=== PATIENT | female | born 1950 | race Caucasian/White ===

== ENCOUNTER 2016-10-05 09:21 | Emergency (ER) | payer MEDICARE, BC ==
--- NOTE | 2016-10-05 09:24 | EDM.PDOC ---
ED HPI GENERAL MEDICAL PROBLEM - General Chief Complaint: Chest Pain Stated Complaint: FROM CLINIC WITH CHEST PAIN Time Seen by Provider: 10/05/16 09:22 Source of Information: Reports: Patient, Old Records, RN, RN Notes Reviewed History Limitations: Reports: No Limitations - History of Present Illness INITIAL COMMENTS - FREE TEXT/NARRATIVE: Sent by Asya RECIO from clinic with c/o onset of lower to mid-chest pain last evening. Pt thought it was just heartburn from her GERD, but this morning the pain began to radiate to the neck and left shoulder, so she went to the clinic to have it checked out. Pt denies SOB, rapid HR, irregular HR, edema , fever, or chills. Admits to very slight nausea. 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) Left Chest Pain Score (Numeric/FACES): 1 - Related Data Allergies Allergy/AdvReac Type Severity Reaction Status Date / Time amoxicillin [From Augmentin] Allergy Rash Verified 10/05/16 10:05 carrot Allergy Rash Verified 10/05/16 10:05 clavulanic acid Allergy Rash Verified 10/05/16 10:05 [From Augmentin] nut - unspecified Allergy Swelling Verified 10/05/16 10:05 peanut Allergy Swelling Verified 10/05/16 10:05 shellfish derived Allergy Swelling Verified 10/05/16 10:05 Sulfa (Sulfonamide Allergy Rash Verified 10/05/16 10:05 Antibiotics) Home Meds: Home Meds Albuterol [Ventolin HFA] 2 puff INH Q4H PRN 10/05/16 [History] EPINEPHrine [Epipen] 0.3 mg IM ONETIME 10/05/16 [History] Furosemide [Lasix] 20 mg PO DAILY 10/05/16 [History] Ipratropium/Albuterol Sulfate [Combivent Respimat Inhal [place]] 2 puff INH DAILY 10/05/16 [History] Levothyroxine 75 mcg PO ACBREAKFAST 10/05/16 [History] Loratadine [Claritin] 10 mg PO DAILY 10/05/16 [History] Melatonin 5 mg PO BEDTIME 10/05/16 [History] Montelukast [Singulair] 10 mg PO BEDTIME 10/05/16 [History] Pantoprazole Sodium [Protonix] 40 mg PO DAILY 10/05/16 [History] Past Medical History Cardiovascular History: Reports: High Cholesterol, Other (See Below) ( peripheral edema) Respiratory History: Reports: Asthma Gastrointestinal History: Reports: GERD Endocrine/Metabolic History: Reports: Hypothyroidism, Obesity/BMI 30+ Social & Family History - Family History Family Medical History: Noncontributory - Tobacco Use Smoking Status *Q: Never Smoker - Caffeine Use Caffeine Use: Reports: None - Alcohol Use Alcohol Use History: No - Living Situation & Occupation Living situation: Reports: , with Spouse ED ROS GENERAL - Review of Systems Review Of Systems: ROS reveals no pertinent complaints other than HPI. ED EXAM, GENERAL - Physical Exam Exam: See Below Exam Limited By: No Limitations General Appearance: Alert, WD/WN, No Apparent Distress, Obese Eye Exam: Bilateral Eye: Normal Inspection Ears: Normal External Exam, Hearing Grossly Normal Nose: Normal Inspection Throat/Mouth: Normal Inspection Head: Atraumatic, Normocephalic Neck: Normal Inspection, Supple, Non-Tender, Full Range of Motion Respiratory/Chest: No Respiratory Distress, Lungs Clear, Normal Breath Sounds, No Accessory Muscle Use, Chest Non-Tender Cardiovascular: Normal Peripheral Pulses, Regular Rate, Rhythm, No Edema, No Gallop, No JVD, No Murmur, No Rub GI/Abdominal: Normal Bowel Sounds, Soft, Non-Tender, No Organomegaly, No Distention, No Abnormal Bruit (Female) Exam: Deferred Rectal (Female) Exam: Deferred Back Exam: Normal Inspection Extremities: Normal Inspection, Normal Range of Motion, Non-Tender, Normal Capillary Refill, No Pedal Edema Neurological: Alert, Oriented, CN II-XII Intact, Normal Cognition, Normal Gait, No Motor/Sensory Deficits Psychiatric: Normal Affect, Normal Mood Skin Exam: Warm, Dry, Intact, Normal Color, No Rash EKG INTERPRETATION EKG Date: 10/05/16 Time: 09:28 Rhythm: Other (SR) Rate (Beats/Min): 63 [place]: Normal P-Wave: Present QRS: Normal (low voltage in precordial leads) ST-T: Normal QT: Normal Comparison: NA - No Prior EKG EKG Interpretation Comments: Repeat EKG at 1404HRS: NSR, rate 73, unchanged from prior. Course - Vital Signs Last Recorded V/S: Last Vital Signs Temp 36.6 C 10/05/16 13:25 Pulse 82 10/05/16 13:25 Resp 20 10/05/16 13:25 BP 124/61 10/05/16 13:25 Pulse Ox 96 10/05/16 13:25 - Orders/Labs/Meds Orders: Active Orders 24 hr Category Date Time Status EKG 12 Lead [EKG Documentation Completion] [RC] STAT Care 10/05/16 09:27 Active EKG Documentation Completion [RC] ONETIME Care 10/05/16 13:30 Active Peripheral IV Care [RC] . DIRECTED Care 10/05/16 09:28 Active Heart Healthy Diet [DIET] Diet 10/05/16 Lunch Active Nitroglycerin [Nitrostat] Med 10/05/16 09:27 Active 0.4 mg SL Q5M PRN Sodium Chloride 0.9% [Saline Flush] Med 10/05/16 09:27 Active 10 ml FLUSH ASDIRECTED PRN Peripheral IV Insertion Adult [OM.PC] Stat Oth 10/05/16 09:27 Ordered Medication Orders Nitroglycerin (Nitrostat) 0.4 mg SL Q5M PRN PRN Reason: Chest Pain Sodium Chloride (Saline Flush) 10 ml FLUSH ASDIRECTED PRN PRN Reason: Keep Vein Open Last Admin: 10/05/16 09:53 Dose: 10 ml Labs: Laboratory Tests 10/05/16 10/05/16 10/05/16 Range/Units 09:36 09:36 09:36 WBC 4.7 L (5.0-10.0) 10^3/uL RBC 4.71 (4.2-5.4) 10^6/uL Hgb 14.2 (12.0-16.0) g/dL Hct 42.1 (37.0-47.0) % MCV 89.4 (80-100) fL MCH 30.1 (27.0-34.0) pg MCHC 33.7 (33.0-35.0) g/dL Plt Count 199 (150-450) 10^3/uL Neut % (Auto) 52.8 (42.2-75.2) % Lymph % (Auto) 30.0 (20.5-50.1) % [place] % (Auto) 13.1 H (2-8) % Eos % (Auto) 3.9 H (1.0-3.0) % Baso % (Auto) 0.2 (0.0-1.0) % D-Dimer, Quantitative 584 H (0-400) ng/mL Sodium 142 (135-145) mmol/L Potassium 4.2 (3.6-5.0) mmol/L Chloride 103 (101-111) mmol/L Carbon Dioxide 29.0 (21.0-31.0) mmol/L Anion Gap 14.2 BUN 21 H (7-18) mg/dL Creatinine 0.8 (0.6-1.3) mg/dL Est Cr Clr Drug Dosing 68.18 mL/min Estimated GFR (MDRD) > 60 BUN/Creatinine Ratio 26.25 Glucose 114 H (74-105) mg/dL Calcium 9.3 (8.4-10.2) mg/dl Total Bilirubin 0.9 (0.2-1.0) mg/dL AST 27 (10-42) IU/L ALT 33 (10-60) IU/L Alkaline Phosphatase 58 (42-121) IU/L Troponin I < 0.02 (0.00-0.02) ng/ml Total Protein 6.9 (6.7-8.2) g/dl Albumin 4.1 (3.2-5.5) g/dl Globulin 2.8 Albumin/Globulin Ratio 1.46 Amylase 31 (28-100) U/L Lipase 21 L (22-51) U/L TSH, Ultra Sensitive (0.35-7.0) uIu/mL 10/05/16 10/05/16 Range/Units 09:36 13:33 WBC (5.0-10.0) 10^3/uL RBC (4.2-5.4) 10^6/uL Hgb (12.0-16.0) g/dL Hct (37.0-47.0) % MCV (80-100) fL MCH (27.0-34.0) pg MCHC (33.0-35.0) g/dL Plt Count (150-450) 10^3/uL Neut % (Auto) (42.2-75.2) % Lymph % (Auto) (20.5-50.1) % [place] % (Auto) (2-8) % Eos % (Auto) (1.0-3.0) % Baso % (Auto) (0.0-1.0) % D-Dimer, Quantitative (0-400) ng/mL Sodium (135-145) mmol/L Potassium (3.6-5.0) mmol/L Chloride (101-111) mmol/L Carbon Dioxide (21.0-31.0) mmol/L Anion Gap BUN (7-18) mg/dL Creatinine (0.6-1.3) mg/dL Est Cr Clr Drug Dosing mL/min Estimated GFR (MDRD) BUN/Creatinine Ratio Glucose (74-105) mg/dL Calcium (8.4-10.2) mg/dl Total Bilirubin (0.2-1.0) mg/dL AST (10-42) IU/L ALT (10-60) IU/L Alkaline Phosphatase (42-121) IU/L Troponin I < 0.02 (0.00-0.02) ng/ml Total Protein (6.7-8.2) g/dl Albumin (3.2-5.5) g/dl Globulin Albumin/Globulin Ratio Amylase (28-100) U/L Lipase (22-51) U/L TSH, Ultra Sensitive 1.30 (0.35-7.0) uIu/mL Meds: Medications Generic Name Dose Route Start Last Admin Trade Name Freq PRN Reason Stop Dose Admin Nitroglycerin 0.4 mg 10/05/16 09:27 Nitrostat SL Q5M PRN Chest Pain Sodium Chloride 10 ml 10/05/16 09:27 10/05/16 09:53 Saline Flush FLUSH 10 ml ASDIRECTED PRN Administration Keep Vein Open Discontinued Medications Generic Name Dose Route Start Last Admin Trade Name Freq PRN Reason Stop Dose Admin Aspirin 324 mg 10/05/16 09:26 10/05/16 09:52 Aspirin PO 10/05/16 09:27 324 mg ONETIME ONE Administration - Radiology Interpretation Free Text/Narrative:: CXR: no acute process per Rad. report. - Re-Assessments/Exams Free Text/Narrative Re-Assessment/Exam: 10/05/16 10:43 Pt held as extended stay ER for chest pain rule out with repeat EKG and Troponin at 4hrs from initial draw. Departure - Departure Time of Disposition: 14:15 Disposition: Home, Self-Care 01 Condition: Good Clinical Impression: Non-cardiac chest pain Instructions: Nonspecific Chest Pain, [id number], Esophageal Spasm Forms: ED Department Discharge Additional Instructions: Follow up in clinic with your primary doctor this week for recheck and discuss your symptoms today. Your pain may be related to GERD and/or esophageal spasms. - My Orders Last 24 Hours: My Active Orders 10/05/16 09:27 EKG 12 Lead [EKG Documentation Completion] [RC] STAT Nitroglycerin [Nitrostat] 0.4 mg SL Q5M PRN Sodium Chloride 0.9% [Saline Flush] 10 ml FLUSH ASDIRECTED PRN Peripheral IV Insertion Adult [OM.PC] Stat 10/05/16 09:28 Peripheral IV Care [RC] . DIRECTED 10/05/16 13:30 EKG Documentation Completion [RC] ONETIME 10/05/16 Lunch Heart Healthy Diet [DIET] - Assessment/Plan Last 24 Hours: My Active Orders 10/05/16 09:27 EKG 12 Lead [EKG Documentation Completion] [RC] STAT Nitroglycerin [Nitrostat] 0.4 mg SL Q5M PRN Sodium Chloride 0.9% [Saline Flush] 10 ml FLUSH ASDIRECTED PRN Peripheral IV Insertion Adult [OM.PC] Stat 10/05/16 09:28 Peripheral IV Care [RC] . DIRECTED 10/05/16 13:30 EKG Documentation Completion [RC] ONETIME 10/05/16 Lunch Heart Healthy Diet [DIET]
[2016-10-05] MEDS ORDERED: Aspirin 81 MG Tab.Chew PO ONE (09:26)
[2016-10-05] MEDS ORDERED: Sodium Chloride 0.9% 10 ML Syringe FLUSH PRN (09:27)
[2016-10-05] MEDS ORDERED: Nitroglycerin 0.4 MG Tab.SL SL PRN (09:27)
--- NOTE | 2016-10-05 09:55 | CR ---
Clinical history: 66-year-old female emergency department with chest pain. Upright AP portable chest film confirms mild scoliosis and chronic arthritic changes of spine. 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 Reasonable inspiratory effort and normal cardiac silhouette without alveolar edema or dependent effu magnus. No lung mass, hilar lymphadenopathy or focal lobar pneumonia. No atelectasis/collapse. No pneumothor ax. CONCLUSION: No acute cardiopulmonary abnormality.
[2016-10-05 10:05] LABS: CHLORIDE,CL 103 mmol/L (101-111); SODIUM,NA 142 mmol/L (135-145)
[2016-10-05 13:26] VITALS: BP 124/61
--- NOTE | 2016-10-06 16:21 | EKG ---
10/05/2016 - JAY PEREZ 12-lead EKG shows normal sinus rhythm with no significant ST elevation or ST depression noted on this 12-lead EKG. Not much change from her previous EKG. [facility] /[id number]
--- NOTE | 2016-10-07 09:41 | EKG ---
10/05/2016- JAY PEREZ 12-lead EKG shows normal sinus rhythm with heart rate of 63. No significant ST elevation or ST depression noted on this 12-lead EKG. Nonspecific ST-T wave changes noted on lead 2 and also lead V1. [facility] /[id number]
== END 2016-10-05 14:27 | disposition home or self-care (01) ==
LOC: DL.ED 09:21
DX: R07.89 Other chest pain (principal); K21.9 Gastro-esophageal reflux disease without esophagitis; E78.00 Pure hypercholesterolemia, unspecified; E03.9 Hypothyroidism, unspecified; Z79.899 Other long term (current) drug therapy; Z88.8 Allergy status to other drugs, medicaments and biological substances
CPT/HCPCS: 36415; 71010; 80053; 82150; 83690; 84443; 84484; 85025; 85379; 93005; 93010; 99285; A9270; J7050

== ENCOUNTER 2018-09-15 16:07 | Emergency (ER) | payer MEDICARE, BC ==
[2018-09-15] MEDS ORDERED: Sodium Chloride 0.9% 10 ML Syringe FLUSH PRN (16:10)
[2018-09-15 16:14] VITALS: BP 128/74; PULSE 69
--- NOTE | 2018-09-15 16:33 | EDM.PDOC ---
ED HPI GENERAL MEDICAL PROBLEM - General Chief Complaint: Chest Pain Stated Complaint: POSSIBLE HEART ATTACK [id number] Time Seen by Provider: 09/15/18 16:20 Source of Information: Reports: Patient, RN, RN Notes Reviewed History Limitations: Reports: No Limitations - History of Present Illness INITIAL COMMENTS - FREE TEXT/NARRATIVE: Pt to ER with c/o left sided chest pain that radiates into the left arm, left neck and jaw, and into the back. Patient states the pain began about 1330 after eating lunch. Patient rates the pain 10/10 when pain was present. She states the pain has mostly subsided at this time. Pt admits to some nausea. Denies vomiting, diarrhea, fever or chills, SOB. Admits to having "the sweats" today during the episode. Patient denies health problems. States she has had chest pain like this in the past. Denies hx of [place], stents, CAD. States hx of GERD. Onset: Today, Sudden Left Chest Pain Score (Numeric/FACES): 4 - Related Data Allergies Allergy/AdvReac Type Severity Reaction Status Date / Time amoxicillin [From Augmentin] Allergy Rash Verified 09/15/18 16:17 carrot Allergy Rash Verified 09/15/18 16:17 clavulanic acid Allergy Rash Verified 09/15/18 16:17 [From Augmentin] nut - unspecified Allergy Swelling Verified 09/15/18 16:17 peanut Allergy Swelling Verified 09/15/18 16:17 shellfish derived Allergy Swelling Verified 09/15/18 16:17 Sulfa (Sulfonamide Allergy Rash Verified 09/15/18 16:17 Antibiotics) Home Meds: Home Meds Albuterol [Ventolin HFA] 2 puff INH Q4H PRN 10/05/16 [History] EPINEPHrine [Epipen] 0.3 mg IM ONETIME 10/05/16 [History] Ipratropium/Albuterol Sulfate [Combivent Respimat Inhal [place]] 2 puff INH DAILY 10/05/16 [History] Levothyroxine 75 mcg PO ACBREAKFAST 10/05/16 [History] Loratadine [Claritin] 10 mg PO DAILY 10/05/16 [History] Melatonin 5 mg PO BEDTIME 10/05/16 [History] Montelukast [Singulair] 10 mg PO BEDTIME 10/05/16 [History] Pantoprazole Sodium [Protonix] 40 mg PO DAILY 10/05/16 [History] Past Medical History Cardiovascular History: Reports: High Cholesterol, Other (See Below) ( peripheral edema) Respiratory History: Reports: Asthma Gastrointestinal History: Reports: GERD Musculoskeletal History: Reports: Fibromyalgia, Osteoarthritis Other Musculoskeletal History: osteopenia Other Neuro History: meningioma Endocrine/Metabolic History: Reports: Hypothyroidism, Obesity/BMI 30+ - Infectious Disease History Infectious Disease History: Reports: Chicken Pox, Mumps - Past Surgical History GI Surgical History: Reports: EGD Neurological Surgical History: Reports: Other (See Below) Other Neurological Surgeries/Procedures: meningioma Social & Family History - Family History Family Medical History: Noncontributory - Caffeine Use Caffeine Use: Reports: None - Living Situation & Occupation Living situation: Reports: , with Spouse ED ROS GENERAL - Review of Systems Review Of Systems: ROS reveals no pertinent complaints other than HPI. ED EXAM, GENERAL - Physical Exam Exam: See Below Exam Limited By: No Limitations General Appearance: Alert, WD/WN, No Apparent Distress Eye Exam: Bilateral Eye: EOMI, Normal Inspection Ears: Normal External Exam, Hearing Grossly Normal Nose: Normal Inspection Throat/Mouth: Normal Inspection, Normal Voice, No Airway Compromise Head: Atraumatic, Normocephalic Neck: Normal Inspection, Supple, Non-Tender, Full Range of Motion Respiratory/Chest: No Respiratory Distress, Lungs Clear, Normal Breath Sounds, No Accessory Muscle Use, Chest Non-Tender Cardiovascular: Normal Peripheral Pulses, Regular Rate, Rhythm, No Edema, No Gallop, No JVD, No Murmur, No Rub Peripheral Pulses: 2+: Radial (L), Radial (R) GI/Abdominal: Normal Bowel Sounds, Soft, Non-Tender (Female) Exam: Deferred Rectal (Female) Exam: Deferred Back Exam: Normal Inspection, Full Range of Motion, NT Extremities: Normal Inspection, Normal Range of Motion, Non-Tender, Normal Capillary Refill, No Pedal Edema Neurological: Alert, Oriented, CN II-XII Intact, Normal Cognition, Normal Gait, Normal Reflexes, No Motor/Sensory Deficits Psychiatric: Normal Affect, Normal Mood Skin Exam: Warm, Dry, Intact, Normal Color, No Rash Lymphatic: No Adenopathy EKG INTERPRETATION EKG Date: 09/15/18 Time: 16:15 Rhythm: NSR Rate (Beats/Min): 66 [place]: Normal P-Wave: Present QRS: Normal ST-T: Normal QT: Normal Comparison: No Change Course - Vital Signs Last Recorded V/S: Last Vital Signs Temp 97.3 F 09/15/18 16:13 Pulse 69 09/15/18 16:13 Resp 14 09/15/18 16:13 BP 128/74 09/15/18 16:13 Pulse Ox 97 09/15/18 16:13 - Orders/Labs/Meds Orders: Active Orders 24 hr Category Date Time Status EKG Documentation Completion [RC] STAT Care 09/15/18 16:10 Active Peripheral IV Care [RC] . DIRECTED Care 09/15/18 16:11 Active Sodium Chloride 0.9% [Saline Flush] Med 09/15/18 16:10 Active 10 ml FLUSH ASDIRECTED PRN Peripheral IV Insertion Adult [OM.PC] Stat Oth 09/15/18 16:10 Ordered Medication Orders Sodium Chloride (Saline Flush) 10 ml FLUSH ASDIRECTED PRN PRN Reason: Keep Vein Open Last Admin: 09/15/18 16:15 Dose: 10 ml Labs: Laboratory Tests 09/15/18 09/15/18 09/15/18 Range/Units 16:14 16:14 16:14 WBC 6.2 (5.0-10.0) 10^3/uL RBC 4.94 (4.2-5.4) 10^6/uL Hgb 14.9 (12.0-16.0) g/dL Hct 44.5 (37.0-47.0) % MCV 90.1 (80-100) fL MCH 30.2 (27.0-34.0) pg MCHC 33.5 (33.0-35.0) g/dL Plt Count 211 (150-450) 10^3/uL Neut % (Auto) 52.3 (42.2-75.2) % Lymph % (Auto) 35.0 (20.5-50.1) % [place] % (Auto) 10.0 H (2-8) % Eos % (Auto) 2.4 (1.0-3.0) % Baso % (Auto) 0.3 (0.0-1.0) % PT 9.6 (9.0-12.0) SEC INR 0.9 (0.9-1.2) Sodium 140 (135-145) mmol/L Potassium 3.7 (3.6-5.0) mmol/L Chloride 101 (101-111) mmol/L Carbon Dioxide 28.0 (21.0-31.0) mmol/L Anion Gap 14.7 BUN 12 (7-18) mg/dL Creatinine 0.9 (0.6-1.3) mg/dL Est Cr Clr Drug Dosing 58.99 mL/min Estimated GFR (MDRD) > 60 BUN/Creatinine Ratio 13.33 Glucose 123 H (74-105) mg/dL Calcium 9.0 (8.4-10.2) mg/dl Total Bilirubin 0.8 (0.2-1.0) mg/dL AST 23 (10-42) IU/L ALT 27 (10-60) IU/L Alkaline Phosphatase 61 (42-121) IU/L Troponin I < 0.02 (0.00-0.02) ng/ml Total Protein 7.0 (6.7-8.2) g/dl Albumin 4.2 (3.2-5.5) g/dl Globulin 2.8 Albumin/Globulin Ratio 1.50 Meds: Medications Generic Name Dose Route Start Last Admin Trade Name Freq PRN Reason Stop Dose Admin Sodium Chloride 10 ml 09/15/18 16:10 09/15/18 16:15 Saline Flush FLUSH 10 ml ASDIRECTED PRN Administration Keep Vein Open Discontinued Medications Generic Name Dose Route Start Last Admin Trade Name Freq PRN Reason Stop Dose Admin Al Hydroxide/Mg Hydroxide 30 ml 09/15/18 16:58 09/15/18 17:02 Gi Cocktail PO 09/15/18 16:59 30 ml ONETIME ONE Administration - Radiology Interpretation Free Text/Narrative:: Chest xray: No acute findings See rad report - Re-Assessments/Exams Free Text/Narrative Re-Assessment/Exam: 09/15/18 17:23 Patient reports improvement of pain with GI Cocktail. Departure - Departure Time of Disposition: 17:23 Disposition: Home, Self-Care 01 Reason for Transfer *Q: Other Condition: Fair Clinical Impression: Non-cardiac chest pain Gastroesophageal reflux disease Qualifiers: Esophagitis presence: esophagitis presence not specified Qualified Code(s): K21.9 - Gastro-esophageal reflux disease without esophagitis Instructions: Indigestion, [id number], Food Choices for Gastroesophageal Reflux Disease, Adult, [id number], Heartburn, [id number], Chest Wall Pain, [id number], Nonspecific Chest Pain, [id number], Gastroesophageal Reflux Disease, Adult, [id number] Forms: ED Department Discharge Additional Instructions: Follow up with your primary care facility for possible stress test Return to the ER with any further problems Avoid greasy, fatty foods, spicy foods, caffeine, mint, chocolate, alcohol. Drink plenty of water Sit upright for 30-60 minutes after eating - My Orders Last 24 Hours: My Active Orders 09/15/18 16:10 EKG Documentation Completion [RC] STAT Sodium Chloride 0.9% [Saline Flush] 10 ml FLUSH ASDIRECTED PRN Peripheral IV Insertion Adult [OM.PC] Stat 09/15/18 16:11 Peripheral IV Care [RC] . DIRECTED - Assessment/Plan Last 24 Hours: My Active Orders 09/15/18 16:10 EKG Documentation Completion [RC] STAT Sodium Chloride 0.9% [Saline Flush] 10 ml FLUSH ASDIRECTED PRN Peripheral IV Insertion Adult [OM.PC] Stat 09/15/18 16:11 Peripheral IV Care [RC] . DIRECTED
--- NOTE | 2018-09-15 16:34 | CR ---
Clinical history: 68-year-old female chest pain Interpretation: No acute new cardiopulmonary abnormality since 05 October 2016 comparable film. Dorsolumbar scoliosis spine. External wrapper opener leads and down snaps. Normal cardiac silhouette without cephalization of vascular flow, alveolar edema or dependent pleural fluid accumulation. No new lung mass, hilar lymphadenopathy or focal lobar pneumonia. No atelectasis/collapse. No pneumothorax.
[2018-09-15 16:41] LABS: ANION GAP 14.7; CHLORIDE,CL 101 mmol/L (101-111); SODIUM,NA 140 mmol/L (135-145)
[2018-09-15] MEDS ORDERED: GI Cocktail Oral Solution 30 ML PO ONE (16:58)
== END 2018-09-15 17:31 | disposition home or self-care (01) ==
LOC: DL.ED 16:07
DX: K21.9 Gastro-esophageal reflux disease without esophagitis (principal); E03.9 Hypothyroidism, unspecified; Z79.899 Other long term (current) drug therapy; Z88.2 Allergy status to sulfonamides; Z88.1 Allergy status to other antibiotic agents; Z91.010 Allergy to peanuts; Z91.013 Allergy to seafood; Z91.018 Allergy to other foods; Z88.8 Allergy status to other drugs, medicaments and biological substances
CPT/HCPCS: 36415; 71045; 80053; 84484; 85025; 85610; 93005; 99285; A9270; 93010; 99283

== ENCOUNTER 2019-03-11 16:28 | Emergency (ER) | payer OTHER, MEDICARE, BC ==
[2019-03-11] MEDS ORDERED: Codeine/guaiFENesin 100-10 MG/5 ML Syrup 5 ML Cup PO ONE (16:29)
[2019-03-11 16:34] VITALS: BP 139/75; PULSE 115
[2019-03-11] MEDS ORDERED: Albuterol/Ipratropium 3.0-0.5 MG/3 ML Neb Soln NEB ONE (17:03)
[2019-03-11] MEDS ORDERED: Codeine/guaiFENesin 100-10 MG/5 ML Syrup 5 ML Cup ONE (17:27)
--- NOTE | 2019-03-11 17:36 | EDM.PDOC ---
Scribed by Maria Dolores Leblanc 03/11/19 1702 for Pat Lomeli NP ED HPI GENERAL MEDICAL PROBLEM - General Chief Complaint: ENT Problem Stated Complaint: SORE THROAT, EARACHE Time Seen by Provider: 03/11/19 16:48 Source of Information: Reports: Patient, RN, RN Notes Reviewed History Limitations: Reports: No Limitations - History of Present Illness INITIAL COMMENTS - FREE TEXT/NARRATIVE: Patient presents to ER with bilateral ear pain left greater than right, cough, headache and sore throat with fevers off and on for 1 week. She also has fatigue. She has been taking Tylenol and Nyquil. She has a cough and still not sleeping. Patient did have her flu shot this year in Dec.. Onset Date: 03/05/19 Duration: Getting Worse Location: Reports: Generalized Quality: Reports: Ache Severity: Moderate Improves with: Reports: None Worsens with: Reports: None Associated Symptoms: Reports: Other (dry cough) Throat Pain Score (Numeric/FACES): 4 - Related Data Allergies Allergy/AdvReac Type Severity Reaction Status Date / Time amoxicillin [From Augmentin] Allergy Rash Verified 03/11/19 16:34 carrot Allergy Rash Verified 03/11/19 16:34 clavulanic acid Allergy Rash Verified 03/11/19 16:34 [From Augmentin] nut - unspecified Allergy Swelling Verified 03/11/19 16:34 peanut Allergy Swelling Verified 03/11/19 16:34 shellfish derived Allergy Swelling Verified 03/11/19 16:34 Sulfa (Sulfonamide Allergy Rash Verified 03/11/19 16:34 Antibiotics) Home Meds: Home Meds Albuterol [Ventolin HFA] 2 puff INH Q4H PRN 10/05/16 [History] EPINEPHrine [Epipen] 0.3 mg IM ONETIME 10/05/16 [History] Ipratropium/Albuterol Sulfate [Combivent Respimat Inhal [place]] 2 puff INH DAILY 10/05/16 [History] Levothyroxine 75 mcg PO ACBREAKFAST 10/05/16 [History] Loratadine [Claritin] 10 mg PO DAILY 10/05/16 [History] Montelukast [Singulair] 10 mg PO BEDTIME 10/05/16 [History] Pantoprazole Sodium [Protonix] 40 mg PO DAILY 10/05/16 [History] Desipramine 20 mg PO DAILY 03/11/19 [History] Past Medical History HEENT History: Reports: Impaired Vision Cardiovascular History: Reports: High Cholesterol Respiratory History: Reports: Asthma Gastrointestinal History: Reports: GERD Musculoskeletal History: Reports: Fibromyalgia, Osteoarthritis Other Musculoskeletal History: osteopenia Other Neuro History: meningioma Endocrine/Metabolic History: Reports: Hypothyroidism, Obesity/BMI 30+ - Infectious Disease History Infectious Disease History: Reports: Chicken Pox, Measles, Mumps - Past Surgical History GI Surgical History: Reports: EGD Female Surgical History: Reports: Hysterectomy Neurological Surgical History: Reports: Other (See Below) Other Neurological Surgeries/Procedures: meningioma Social & Family History - Family History Family Medical History: Noncontributory - Tobacco Use Smoking Status *Q: Never Smoker Second Hand Smoke Exposure: No - Caffeine Use Caffeine Use: Reports: None - Recreational Drug Use Recreational Drug Use: No - Living Situation & Occupation Living situation: Reports: , with Spouse ED ROS ENT - Review of Systems Review Of Systems: Comprehensive ROS is negative, except as noted in HPI. ED EXAM, ENT - Physical Exam Exam: See Below Exam Limited By: No Limitations General Appearance: Alert, WD/WN, No Apparent Distress Eye Exam: Bilateral Eye: EOMI, Normal Inspection, PERRL Ears: Normal External Exam, Normal Canal, Hearing Grossly Normal, Normal TMs Nose: Normal Inspection, Normal Mucousa, No Blood Mouth/Throat: Normal Inspection, Normal Lips, Other (mild red atrophy tonsils) Head: Atraumatic, Normocephalic Neck: Normal Inspection, Supple, Non-Tender, Full Range of Motion Respiratory/Chest: No Respiratory Distress, Lungs Clear, Normal Breath Sounds, No Accessory Muscle Use, Chest Non-Tender Cardiovascular: Normal Peripheral Pulses, Regular Rate, Rhythm, No Edema, No Gallop, No JVD, No Murmur, No Rub GI/Abdominal: Normal Bowel Sounds, Soft, Non-Tender, No Organomegaly, No Distention, No Abnormal Bruit, No Mass (Female) Exam: Deferred Rectal (Female) Exam: Deferred Back: Normal Inspection, Full Range of Motion Extremities: Normal Inspection, Normal Range of Motion, Non-Tender, No Pedal Edema, Normal Capillary Refill Neurological: Alert, Oriented, CN II-XII Intact, Normal Cognition, Normal Gait, Normal Reflexes, No Motor/Sensory Deficits Psychiatric: Normal Affect, Normal Mood Skin: Warm, Dry, Intact, Normal Color, No Rash Course - Vital Signs Last Recorded V/S: Last Vital Signs Temp 36.6 C 03/11/19 16:30 Pulse 115 H 03/11/19 17:11 Resp 18 03/11/19 16:30 BP 139/75 03/11/19 16:30 Pulse Ox 96 03/11/19 16:30 - Orders/Labs/Meds Orders: Active Orders 24 hr Category Date Time Status RT Aerosol Therapy [RC] ASDIRECTED Care 03/11/19 17:03 Active CULTURE STREP A CONFIRMATION [] Stat Lab 03/11/19 16:39 Results STREP SCRN A RAPID W CULT CONF [] Stat Lab 03/11/19 16:39 Results Labs: Rapid strep: Negative. Influenza A: Positive. Influenza B: Negative. Meds: Medications Discontinued Medications Generic Name Dose Route Start Last Admin Trade Name Freq PRN Reason Stop Dose Admin Albuterol/Ipratropium 3 ml 03/11/19 17:03 03/11/19 17:11 Duoneb 3.0-0.5 Mg/3 Ml NEB 03/11/19 17:04 3 ml ONETIME ONE Administration Codeine/guaifenesin 5 ml q 4-6 hours. 4 doses sent home with patinet; and a Rx. - Re-Assessments/Exams Free Text/Narrative Re-Assessment/Exam: 03/11/19 17:30 Influenza A positive. Frequent cough. Duo neb given; Lungs clear, cough decreased after duoneb. She was informed to use her inhaler 3-4 x per day to help settle cough down. Not sleeping due to cough. Given some codeine guaifenesin cough syrup to go. Handout on influenza given. She is return to her PCP if develops an SOB worsening fevers or concerns. Departure - Departure Time of Disposition: 17:36 Disposition: Home, Self-Care 01 Condition: Good Clinical Impression: Influenza A - Discharge Information Instructions: Influenza, Adult, [id number] Forms: ED Department Discharge Additional Instructions: cough syrup q 4-6 hours only to use if sleeping as it will make you sleep. Do not take any other cough med with it such as nyquil as it is also sedative. Not to be around others for 48 hr after your temp is gone. rest and see you PCP in 1 week if still not resolved or if SOB or concerns. Drink plenty of fluids. Stay away from women or children. Sepsis Event Note - Evaluation Sepsis Screening Result: No Definite Risk - Focused Exam Vital Signs: Vital Signs Temp Pulse Resp BP Pulse Ox 03/11/19 17:11 115 H 03/11/19 16:30 36.6 C 115 H 18 139/75 96 Date Exam was Performed: 03/11/19 Time Exam was Performed: 17:26 - My Orders Last 24 Hours: My Active Orders 03/11/19 16:39 CULTURE STREP A CONFIRMATION [RM] Stat STREP SCRN A RAPID W CULT CONF [RM] Stat 03/11/19 17:03 RT Aerosol Therapy [RC] ASDIRECTED - Assessment/Plan Last 24 Hours: My Active Orders 03/11/19 16:39 CULTURE STREP A CONFIRMATION [RM] Stat STREP SCRN A RAPID W CULT CONF [RM] Stat 03/11/19 17:03 RT Aerosol Therapy [RC] ASDIRECTED I have read and agree with the documentation that has been completed regarding this visit. By signing this record, I attest that the documentation was completed in my physical presence and is an accurate record of the encounter.
== END 2019-03-11 17:42 | disposition home or self-care (01) ==
LOC: DL.ED 16:28
DX: J10.1 Influenza due to other identified influenza virus with other respiratory manifestations (principal); E03.9 Hypothyroidism, unspecified; E66.9 Obesity, unspecified; J45.909 Unspecified asthma, uncomplicated; Z91.018 Allergy to other foods; Z88.0 Allergy status to penicillin; Z91.013 Allergy to seafood; Z88.2 Allergy status to sulfonamides; Z88.8 Allergy status to other drugs, medicaments and biological substances; Z79.899 Other long term (current) drug therapy; Z68.35 Body mass index [BMI] 35.0-35.9, adult
CPT/HCPCS: 87081; 87430; 87804; 94640; 99284-25; A9270-GY; J7620-GY

== ENCOUNTER 2020-12-08 14:20 | Emergency (ER) | payer MEDICARE, BC ==
--- NOTE | 2020-12-08 17:16 | EDM.PDOC ---
ED HPI GENERAL MEDICAL PROBLEM - General Chief Complaint: Eye Problems Stated Complaint: [id number] [facility] Time Seen by Provider: 12/08/20 17:00 Source of Information: Reports: Patient History Limitations: Reports: No Limitations - History of Present Illness INITIAL COMMENTS - FREE TEXT/NARRATIVE: This 70 yo female patient reports to the ED due to floaters in her right eye and light flashes in her right eye. The patient reports she did have a fall about 1 1/2 weeks ago hitting the right side of her face, but was not seen after the fall. The patient also reports a history of brain tumors that were mostly removed through [facility]. The patient reports she was told that they could not remove a small tumor from under the right optic nerve. The patient reports [facility] and was [facility] to come to [facility]. Duration: Week(s):, Constant Location: Reports: Head, Face Quality: Reports: Other Severity: Moderate Improves with: Reports: None Worsens with: Reports: None Context: Reports: Other Associated Symptoms: Reports: No Other Symptoms - Related Data Allergies Allergy/AdvReac Type Severity Reaction Status Date / Time amoxicillin [From Augmentin] Allergy Rash Verified 12/08/20 15:07 carrot Allergy Rash Verified 12/08/20 15:07 clavulanic acid Allergy Rash Verified 12/08/20 15:07 [From Augmentin] nut - unspecified Allergy Swelling Verified 12/08/20 15:07 peanut Allergy Swelling Verified 12/08/20 15:07 shellfish derived Allergy Swelling Verified 12/08/20 15:07 Sulfa (Sulfonamide Allergy Rash Verified 12/08/20 15:07 Antibiotics) Home Meds: Home Meds Albuterol [Ventolin HFA] 2 puff INH Q4H PRN 10/05/16 [History] EPINEPHrine [Epipen] 0.3 mg IM ONETIME 10/05/16 [History] Ipratropium/Albuterol Sulfate [Combivent Respimat Inhal [place]] 2 puff INH DAILY 10/05/16 [History] Levothyroxine 75 mcg PO ACBREAKFAST 10/05/16 [History] Loratadine [Claritin] 10 mg PO DAILY 10/05/16 [History] Montelukast [Singulair] 10 mg PO BEDTIME 10/05/16 [History] Pantoprazole Sodium [Protonix] 40 mg PO DAILY 10/05/16 [History] Desipramine 20 mg PO DAILY 03/11/19 [History] Past Medical History HEENT History: Reports: Impaired Vision Cardiovascular History: Reports: High Cholesterol Respiratory History: Reports: Asthma Gastrointestinal History: Reports: GERD Genitourinary History: Reports: None RACK WORKER History: Reports: None Musculoskeletal History: Reports: Fibromyalgia, Osteoarthritis Other Musculoskeletal History: osteopenia Other Neuro History: meningioma Psychiatric History: Reports: None Endocrine/Metabolic History: Reports: Hypothyroidism, Obesity/BMI 30+ Hematologic History: Reports: None Immunologic History: Reports: None Oncologic (Cancer) History: Reports: Brain Dermatologic History: Reports: None - Infectious Disease History Infectious Disease History: Reports: Chicken Pox, Measles, Mumps - Past Surgical History Head Surgeries/Procedures: Reports: None GI Surgical History: Reports: EGD Female Surgical History: Reports: Hysterectomy Neurological Surgical History: Reports: Other (See Below) Other Neurological Surgeries/Procedures: meningioma Social & Family History - Family History Family Medical History: No Pertinent Family History - Tobacco Use Tobacco Use Status *Q: Never Tobacco User Second Hand Smoke Exposure: No - Caffeine Use Caffeine Use: Reports: Coffee - Recreational Drug Use Recreational Drug Use: No - Living Situation & Occupation Living situation: Reports: , with Spouse ED ROS GENERAL - Review of Systems Review Of Systems: Comprehensive ROS is negative, except as noted in HPI. ED EXAM GENERAL W FULL EYE - Physical Exam Exam: See Below Exam Limited By: No Limitations General Appearance: Alert, WD/WN, Mild Distress Eye Exam: Bilateral Eye: EOMI, Normal Inspection, PERRL Eyelids: Bilateral: Normal Appearance Conjunctiva & Sclera: Bilateral: Normal Appearance Cornea Exam: Bilateral: Normal Appearance Extraocular Movements: Bilateral: Intact Pupils: Normal Accommodation Pupillary Size: Bilateral: 4 mm Pupillary Reaction: Bilateral: Brisk Ears: Normal External Exam, Normal Canal, Hearing Grossly Normal, Normal TMs Nose: Normal Inspection, Normal Mucosa, No Blood Throat/Mouth: Normal Inspection, Normal Lips, Normal Teeth, Normal Gums, Normal Oropharynx, Normal Voice, No Airway Compromise Head: Atraumatic, Normocephalic Neck: Normal Inspection, Supple, Non-Tender, Full Range of Motion Respiratory/Chest: No Respiratory Distress, Lungs Clear, Normal Breath Sounds, No Accessory Muscle Use, Chest Non-Tender Cardiovascular: Normal Peripheral Pulses, Regular Rate, Rhythm, No Edema, No Gallop, No JVD, No Murmur, No Rub GI/Abdominal: Normal Bowel Sounds, Soft, Non-Tender, No Organomegaly, No Distention, No Abnormal Bruit, No Mass (Female) Exam: Deferred Rectal (Female) Exam: Deferred Back Exam: Normal Inspection, Full Range of Motion, NT Extremities: Normal Inspection, Normal Range of Motion, Non-Tender, Normal Capillary Refill, No Pedal Edema Neurological: Alert, Oriented, CN II-XII Intact, Normal Cognition, Normal Gait, Normal Reflexes, No Motor/Sensory Deficits Psychiatric: Normal Affect, Normal Mood Skin Exam: Warm, Dry, Intact, Normal Color, No Rash Lymphatic: No Adenopathy Course - Vital Signs Last Recorded V/S: Last Vital Signs Temp 96.5 F L 12/08/20 15:00 Pulse 91 12/08/20 15:00 Resp 18 12/08/20 15:00 BP 116/83 12/08/20 15:00 Pulse Ox 96 12/08/20 15:00 Departure - Departure Time of Disposition: 18:07 Disposition: Home, Self-Care 01 Condition: Fair Clinical Impression: Vitreous floaters of right eye - Discharge Information *PRESCRIPTION DRUG MONITORING PROGRAM REVIEWED*: Not Applicable *COPY OF PRESCRIPTION DRUG MONITORING REPORT IN PATIENT ISABELA: Not Applicable Instructions: Eye Floaters Forms: ED Department Discharge Care Plan Goals: The patient was advised of the examination and CT results during the visit. The patient was given a copy of her CT and a copy of her CT results during the visit. The patient was encouraged to follow-up with her eye doctor for further evaluation and treatment. The patient was advised of the area of concern found on the CT and encouraged to have these results reviewed with her previous MRI results (both pre and post op). If the patient has any additional symptoms or concerns, the patient should either return to the emergency department or visit her primary care facility. Sepsis Event Note (ED) - Evaluation Sepsis Screening Result: No Definite Risk - Focused Exam Vital Signs: Vital Signs Temp Pulse Resp BP Pulse Ox 12/08/20 15:00 96.5 F L 91 18 116/83 96
--- NOTE | 2020-12-08 17:52 | CT ---
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 Radiation optimization: All CT scans at this facility use at least one of these dose optimization techniques: automated exposure control; mA and/or kV adjustment per patient size (includes targeted exams where dose is matched to clinical indication); or iterative reconstruction. COMPARISON: MR Brain w wo Cont 10/03/2013 9:09 AM FINDINGS: Brain: Status post resection of a planum sphenoidale meningioma. Suggestion of a small soft tissue density demonstrated in the left posterior planum sphenoidale close to the optic nerve canal and optic nerve measuring 7.2 x 3.7 x 3.3 mm. Further evaluation with pre and post-contrast MRI would be helpful if clinically desired. Otherwise unremarkable. Cerebral ventricles: No ventriculomegaly. Paranasal sinuses: Visualized sinuses are unremarkable. No fluid levels. Mastoid air cells: Visualized mastoid air cells are well aerated. Bones/joints: Status post left frontal craniotomy. There is hyperostosis frontalis interna. Soft tissues: Unremarkable. IMPRESSION: 1. Status post resection of a planum sphenoidale meningioma. Suggestion of a small soft tissue density demonstrated in the left posterior planum sphenoidale close to the optic nerve canal and optic nerve measuring 7.2 x 3.7 x 3.3 mm. Further evaluation with pre and post-contrast MRI would be helpful if clinically desired. 2. Otherwise unremarkable.
--- NOTE | 2020-12-08 17:58 | CT ---
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 Radiation optimization: All CT scans at this facility use at least one of these dose optimization techniques: automated exposure control; mA and/or kV adjustment per patient size (includes targeted exams where dose is matched to clinical indication); or iterative reconstruction. COMPARISON: MR Brain w wo Cont 10/03/2013 9:09 AM FINDINGS: Orbital cavity: Orbits are normal. Globes are unremarkable. Bones/joints: The cervical spine demonstrates moderate degenerative changes. Status post left frontal craniotomy. Paranasal sinuses: Normal. No air-fluid levels. Soft tissues: See "Pituitary gland and sella" finding. Pituitary gland and sella: There is soft tissue asymmetry in the anterior aspect of the right parasellar region adjacent to the planum sphenoidale and optic nerve canal measuring approximately 5.7 x 8.3 mm in the axial plane although not well demonstrated on this unenhanced evaluation. Findings may be related to postsurgical changes although the possibility of neoplasm not excluded. Further evaluation with pre and post-contrast MRI suggested if clinically desired. Nasal cavity: Bilateral gregoria bullosa. Nasal septum deviated to the left with an ipsilateral nasal spur. IMPRESSION: There is soft tissue asymmetry in the anterior aspect of the right parasellar region adjacent to the planum sphenoidale and optic nerve canal measuring approximately 5.7 x 8.3 mm in the axial plane although not well demonstrated on this unenhanced evaluation. Findings may be related to postsurgical changes although the possibility of neoplasm not excluded. Further evaluation with pre and post-contrast MRI suggested if clinically desired.
[2020-12-08 18:22] VITALS: BP 133/76; PULSE 78
== END 2020-12-08 18:22 | disposition home or self-care (01) ==
LOC: DL.ED 14:20
DX: H43.391 Other vitreous opacities, right eye (principal); E78.00 Pure hypercholesterolemia, unspecified; K21.9 Gastro-esophageal reflux disease without esophagitis; E03.9 Hypothyroidism, unspecified; E66.9 Obesity, unspecified; Z68.32 Body mass index [BMI] 32.0-32.9, adult; Z79.899 Other long term (current) drug therapy; Z88.0 Allergy status to penicillin; Z91.010 Allergy to peanuts; Z88.2 Allergy status to sulfonamides; Z91.030 Bee allergy status; Z91.018 Allergy to other foods
CPT/HCPCS: 70450; 70486; 99283-25